=== PATIENT | female | born 1990 | race Caucasian/White ===

== ENCOUNTER 2017-04-19 12:38 | Emergency (ER) | payer OTHER ==
[2017-04-19 12:58] VITALS: BP 147/86; PULSE 93; RESP 18; TEMP 98; O2SAT 99
--- NOTE | 2017-04-19 16:15 | ED PDOC ---
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 Associated with discomfort to the lateral aspect of the breast. Patient states she is unsure of whether a lump is present. Denies any redness or open wound. Otherwise: (-) chest pain, (-) fever, (-) shortness of breath, (-) trauma/ injury. PMD: None Past Medical History Reviewed: Historical Data, Nursing Documentation, Vital Signs Vital Signs: Last Vital Signs Temp 98.0 F 04/19/17 12:55 Pulse 93 H 04/19/17 12:55 Resp 18 04/19/17 12:55 BP 147/86 04/19/17 12:55 Pulse Ox 99 04/19/17 18:02 - Medical History PMH: No Chronic Diseases Denies: Chronic Kidney Disease - Surgical History Surgical History: - Family History Family History: States: Unknown Family Hx - Home Medications Home Medications: Ambulatory Orders Medication Instructions Recorded Amoxicillin/Clavulanate [Augmentin 1 tab PO Q12H #20 tab 10/11/15 875 MG-125 MG] Ferrous Sulfate 325 mg PO DAILY #30 tablet 10/11/15 - Allergies Allergies/Adverse Reactions: Allergies Allergy/AdvReac Type Severity Reaction Status Date / Time No Known Allergies Allergy Verified 04/19/17 12:54 Review of Systems ROS Statement: Except As Marked, All Systems Reviewed And Found Negative Constitutional: Negative for: Fever Cardiovascular: Negative for: Chest Pain Respiratory: Negative for: Shortness of Breath Skin: Positive for: Other (swelling to right breast, + discomfort). Negative for: Rash, Lesions Physical Exam - Reviewed Nursing Documentation Reviewed: Yes Vital Signs Reviewed: Yes - Physical Exam Comments: GENERAL APPEARANCE: Patient is awake, alert, oriented x 3, in no acute distress. SKIN: Warm, dry; (-) cyanosis. NECK: (-) tenderness, (-) stiffness, (-) lymphadenopathy. CHEST AND RESPIRATORY: (+) bilateral expiratory wheezing; (-) rales, (-) rhonchi , (-) rub; breath sounds equal bilaterally. HEART AND CARDIOVASCULAR: (-) irregularity; (-) murmur, (-) gallop. BREAST: (-) lesions or rashes, (-) palpable mass or cyst, (-) skin changes, (-) nipple discharge, (-) no lymphadenopathy. 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 BACK: (-) tenderness. - ECG O2 Sat by Pulse Oximetry: 99 (RA) Pulse Ox Interpretation: Normal Medical Decision Making Medical Decision Making: Patient advised normal physical exam today, with no infection or mass seen. Patient encouraged to follow up with the clinic and obtain a mammogram for further evaluation. Based on history and exam, plan will be for outpatient follow up. Advised to follow up with the clinic in 1-2 days without fail. Return to the emergency room at any time for any new or worsening symptoms. Patient states she fully agrees with and understands discharge instructions. States that she agrees with the plan and disposition. Verbalized and repeated discharge instructions and plan. I have given the patient opportunity to ask any additional questions. Scribe Attestation: Documented by Modesta Hudson, acting as a scribe for Carrie Villanueva PA-C Provider Scribe Attestation: All medical record entries made by the Scribe were at my direction and personally dictated by me. I have reviewed the chart and agree that the record accurately reflects my personal performance of the history, physical exam, medical decision making, and the department course for this patient. I have also personally directed, reviewed, and agree with the discharge instructions and disposition. Disposition - Clinical Impression Clinical Impression: Pain of breast - Patient ED Disposition Is Patient to be Admitted: No Counseled Patient/Family Regarding: Diagnosis, Need For Followup - Disposition Referrals: [facility] [Outside] Disposition: Routine/Home Disposition Time: 15:38 Condition: STABLE Additional Instructions: Thank you for letting us take care of you today. You were treated for R breast pain. The emergency medical care you received today was directed at your acute symptoms. Return to the Emergency Department if your symptoms worsen, do not improve, or if you have any other problems. Please contact one of the physicians/clinics you have been referred to that are listed on the Patient Visit Information form that is included in your discharge packet. Bring any paperwork you were given at discharge with you along with any medications you are taking to your follow up visit. Our treatment cannot replace ongoing medical care by a primary care provider (PCP) outside of the emergency department. Thank you for allowing the [facility] team to be part of your care today. 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
== END 2017-04-19 18:39 | disposition home or self-care (01) ==
LOC: H.ER 12:38
DX: N64.4 Mastodynia (principal)